=== PATIENT | male | born 1995 | race Caucasian/White ===

== ENCOUNTER → 2019-05-25 | Outpatient (CLI) | payer BC ==
--- NOTE | 2019-05-25 17:29 | XR ---
EXAMINATION TYPE: XR chest 2V DATE OF EXAM: 05/25/2019 COMPARISON: NONE TECHNIQUE: PA and lateral views submitted. HISTORY: Night sweats FINDINGS: The lungs are clear and there is no pneumothorax, pleural effusion, or focal pneumonia. Mild promin ence the pulmonary arteries. No overt failure. IMPRESSION: 1. Mild prominence the hilum may reflect prominent pulmonary arteries. If there is concern for adenop athy correlate with CT scan of the chest. 2. No acute consolidative pneumonia..
[2019-05-25 18:14] LABS: Appearance,Urine Clear (Clear); Bilirubin,Urine Negative (Negative); Blood,Urine Negative (Negative); Color,Urine Yellow; Glucose,Urine (UA) Negative (Negative); Ketones,Urine Negative (Negative); Leukocyte Esterase,Urine Negative (Negative); Nitrite,Urine Negative (Negative); PH, Urine 5.5 (5.0-8.0); Protein,Urine Negative (Negative); Specific Gravity,Urine 1.006 (1.001-1.035); Urobilinogen,Urine <2.0 mg/dL (<2.0)
[2019-05-25 18:48] LABS: HCT 48.1 % (39.0-53.0); HGB 16.2 gm/dL (13.0-17.5); MCH 30.7 pg (25.0-35.0); MCHC 33.6 g/dL (31.0-37.0); MCV 91.4 fL (80.0-100.0); Mean Platelet Volume 7.9; Platelet Count 197 k/uL (150-450); RBC 5.26 m/uL (4.30-5.90); RDW 13.2 % (11.5-15.5); WBC 8.6 k/uL (3.8-10.6)
[2019-05-25 19:26] LABS: Eosinophils # (M) 0.09 k/uL (0-0.7); Lymphocytes # (M) 6.36 k/uL (1.0-4.8); Monocytes # (M) 0.26 k/uL (0-1.0); Neutrophils # (M) 1.89 k/uL (1.3-7.7); Neutrophils % (M) 22 %; Nucleated Red Blood Cells 0 /100 WBC (0-0); Reactive Lymphocytes Present; Total Cells Counted 100
[2019-05-25 22:52] LABS: ALT 842 U/L (10-49); AST 337 U/L (14-35); African American GFR (CKD) 145.9 (60.0-200.0); Albumin/Globulin Ratio 1.87 (1.60-3.17); Alkaline Phosphatase 425 U/L (41-126); Amylase 52 U/L (23-121); C Reactive Protein <0.4 mg/dL (0.0-0.8); Calcium 9.1 mg/dL (8.7-10.3); Carbon Dioxide 22.8 mmol/L (21.6-31.8); Chloride 102 mmol/L (96-109); Creatine Kinase 44 U/L (35-257); Globulin 2.3 g/dL (1.6-3.3); Glucose 95 mg/dL (70-110); Non-African American GFR(CKD) 125.9 (60.0-200.0); Potassium 4.5 mmol/L (3.5-5.5); Sodium 139 mmol/L (135-145); Total Bilirubin 2.6 mg/dL (0.3-1.2); Total Protein 6.6 g/dL (6.2-8.2)
[2019-05-27 10:15] LABS: Hepatitis A Antibody IgM Non-Reactive (Non-Reactive)
[2019-05-27 11:12] LABS: Hepatitis B Core IgM Reactive (Non-Reactive); Hepatitis B Surface Antigen Non-Reactive (Non-Reactive); Hepatitis C IgG Antibody Non-Reactive (Non-Reactive)
== END | disposition home or self-care (01) ==
LOC: LABMAIN 15:29
PROVIDERS: ATTEND Emergency Medicine
DX: R61 Generalized hyperhidrosis (principal); R53.83 Other fatigue; R11.0 Nausea
CPT/HCPCS: 36415; 71046; 80053; 80074; 81003; 82150; 82550; 83690; 83735; 85025; 86140; 86308; 87040